=== PATIENT | female | born 1990 | race Caucasian/White ===

== ENCOUNTER 2018-01-14 08:58 | Emergency (ER) | payer MEDICAID ==
[~2018-01-14] VITALS: Ht 160 cm; Wt 69.0 kg
[2018-01-14] MEDS ORDERED: SODIUM CHLORIDE 0.9% 1,000 ML IV ONE (09:34)
[2018-01-14] MEDS ORDERED: MECLIZINE 25MG TABLET PO ONE (09:45)
[2018-01-14 09:59] LABS: BASOPHILS % 0.5 % (0.0-2.0); EOSINOPHILS % 0.4 % (0.0-5.0); HEMATOCRIT. 40.9 % (36.0-48.0); LYMPHOCYTES % 23.6 % (20.0-50.0); MEAN CORPUSCULAR HEMOGLOBIN 32.3 pg (28.0-32.0); MEAN PLATELET VOLUME 9.3 fl (7.4-10.4); MONOCYTES % 6.2 % (2.0-8.0); NEUTROPHILS % 69.3 % (40.0-76.0); PLATELET 187 x1000/uL (130-400); RED BLOOD CELL COUNT 4.35 mill/uL (4.2-5.4); RED CELL DISTRIBUTION WIDTH 12.7 % (11.6-14.6)
[2018-01-14 10:02] LABS: CLARITY URINE CLEAR (CLEAR); COLOR URINE YELLOW (YELLOW); KETONES URINE NEGATIVE (NEGATIVE); LEUKOCYTE ESTERASE URINE 1+ (NEGATIVE); NITRITE URINE NEGATIVE (NEGATIVE); OCCULT BLOOD URINE 1+ (NEGATIVE); PROTEIN URINE NEGATIVE (NEGATIVE); SPECIFIC GRAVITY URINE 1.023 (1.005-1.030)
[2018-01-14 10:06] LABS: CHLORIDE 106 mEq/L (98-107)
[2018-01-14 10:12] LABS: HCG SCREEN NEGATIVE
[2018-01-14 12:23] VITALS: BP 102/67
== END 2018-01-14 12:24 | disposition home or self-care (01) ==
LOC: ER 09:08
DX: R42 Dizziness and giddiness (principal)
CPT/HCPCS: 36415; 70551; 71045; 80053; 81003; 81025; 82962; 83880; 84484; 84703; 85025; 93005; 96360; 99285; J7030; Z7610; J8597

== ENCOUNTER 2023-07-28 17:00 | Emergency (ER) | payer MEDICAID ==
[~2023-07-28] VITALS: Ht 160 cm; Wt 81.0 kg
[2023-07-28 17:18] VITALS: BP 154/82; PULSE 89; RESP 18; TEMP 98.3; O2SAT 100
== END 2023-07-28 22:02 | disposition left against medical advice (07) ==
LOC: ER 17:00
DX: N64.4 Mastodynia (principal)
CPT/HCPCS: 99281

== ENCOUNTER 2024-03-22 19:46 | Emergency (ER) | payer MEDICAID, OTHER ==
[~2024-03-22] VITALS: Ht 160 cm; Wt 82.0 kg
[2024-03-22 20:07] VITALS: O2SAT 97
[2024-03-22 20:09] VITALS: BP 132/80; PULSE 89; RESP 18; TEMP 36.44736; O2SAT 97
== END 2024-03-22 22:16 | disposition left against medical advice (07) ==
LOC: ER 19:46
DX: L29.9 Pruritus, unspecified (principal); Z53.21 Procedure and treatment not carried out due to patient leaving prior to being seen by health care provider